=== PATIENT | male | born 1935 | race Caucasian/White ===

== ENCOUNTER 2019-12-19 14:37 | Inpatient (IN) ==
--- OUTSIDE RECORDS SUMMARY | 2019-12-19 14:39 | External Medical Summary | Continuity of Care Document ---
:1935 Author Name Hardy Kumar Address Unavailable Unavailable , Care Team Providers Name Role Phone NonMNPG MSerjio Unavailable [email or web address] Unavailable Unavailable Problems Prostate cancer (185) (C61) Nephrolithiasis (592.0) (N20.0) Allergies and Adverse Reactions No Known Drug Allergies (Allergy) Medications Aspirin 81 MG TABS; TAKE 1 TABLET DAILY. Start: 01-Sep-2012 Refills: 0 Simvastatin 40 MG Oral Tablet; TAKE 1 TABLET DAILY DIRECT ED. Start: 01-Sep-2012 Refills: 0 glipiZIDE 5 MG Oral Tablet; TAKE 1 TABLET DAILY. Start: 01-Sep-2012 Refills: 0 Doxazosin Mesylate 2 MG Oral Tablet; TAKE 1 TABLET DAILY DIRECTED. Start: 01-Sep-2012 Refills: 0 Enalapril Maleate 5 MG Oral Tablet; TAKE 1 TABLET DAILY D IRECTED. Start: 01-Sep-2012 Refills: 0 Janumet 50-1000 MG Oral Tablet; TAKE 1 TABLET DAILY DIREC NADYA. Start: 01-Sep-2012 Refills: 0 Procedures Procedures not documented Immunizations Immunizations not documented Family History Unknown Family Member Family history of Prostate Cancer (V16.42) Status: Active Comments: Family History Social History - Smoking Status Never smoked tobacco Plan of Treatment Planned Observations Planned Goals not documented Results No Known Results Results not documented
--- OUTSIDE RECORDS SUMMARY | 2019-12-19 14:40 | External Medical Summary | Continuity of Care Document ---
:1935 Author Name Hardy Kumar Address Unavailable Unavailable , Care Team Providers Name Role Phone NonMNPG MSerjio Unavailable [email or web address] [place] Unavailable Unavailable Problems Nephrolithiasis (592.0) (N20.0) Prostate cancer (185) (C61) Allergies and Adverse Reactions No Known Drug [...]
[2019-12-19] MEDS ORDERED: SODIUM CHLORIDE 0.9% 250 ML IV ONE (15:04)
[2019-12-19] MEDS ORDERED: ACETAMINOPHEN 325 MG TAB PO STA (15:07)
--- NOTE | 2019-12-19 15:10 | Emergency Department Note ---
History of Present Illness General Chief complaint: Illness Stated complaint: FATIGUE Time Seen by Provider: 12/19/19 14:53 Source: patient History of Present Illness Provider complaint: Generalized fatigue Onset (ago): week(s) Location: upper extremity and lower extremity Severity: moderate Pain Consistency: + constant Quality: + other (Generalized fatigue) Relieved By: + none Associated symptoms: + cough, + shortness of breath (Mild) and + other (Loss of taste and smell and diarrhea); no chest pain, no fever/chills and no nausea/vomiting This is an 84-year-old male who was diagnosed with COVID-19, along with his , yesterday. The patient is presenting with generalized fatigue and body aches. He has had loss of taste and smell and some diarrhea. He denies any fever, chest pain, vomiting or difficulty breathing. He does state that he sometimes has some mild shortness of breath. He has no leg swelling or pain. He came here with his to see if there was something he could get to make himself feel better. He states he has not been eating very much as he has no appetite. He has been drinking fluids. Home Medications Home Medications Medication Instructions Recorded Confirmed Type glipizide 5 mg PO BID 12/19/19 12/19/19 History ibuprofen 800 mg PO TID PRN 12/19/19 12/19/19 History lisinopril 10 mg PO DAILY 12/19/19 12/19/19 History metformin 1,000 mg PO BID 12/19/19 12/19/19 History simvastatin 40 mg PO DAILY 12/19/19 12/19/19 History Allergies Allergy/AdvReac Type Severity Reaction Status Date / Time No Known Allergies Allergy Unverified 12/19/19 15:31 Past Med/Surg History Medical History Diabetes High cholesterol Social History Smoking Status: Current some day smoker Feels Safe at Home: Yes Review of Systems See HPI for pertinent positives & negatives. and A total of 10 systems reviewed and were otherwise negative Physical Exam Vital Signs Vital Signs - 24 hr 12/19/19 14:37 12/19/19 16:00 12/19/19 19:09 Temperature 36.8 C Temperature Source Axillary Pulse Rate 102 H Pulse Rate [Apical] 91 H 81 Pulse Rhythm [Apical] Regular Regular Pulse Strength [Apical] Normal Normal Respiratory Rate 28 H 26 H 28 H Respiratory Effort / Characteristics Non-Labored Spontaneous Non-Labored Spontaneous Non-Labored Spontaneous Respiratory Depth Normal Normal Normal Respiratory Pattern Regular Regular Blood Pressure 157/82 H Blood Pressure [Right Arm] 158/83 H 164/89 H Blood Pressure Mean 107 Blood Pressure Mean [Right Arm] 108 114 Blood Pressure Position Sitting Blood Pressure Position [Right Arm] Sitting Sitting Pulse Oximetry 94 95 94 Oxygen Delivery Method Room Air Room Air Room Air Sepsis Recent Fever Within 48 Hours No Sepsis New/Unexplained Change in Mental Status No Sepsis Action Taken by Nursing Physician Notified 12/19/19 20:10 Temperature Temperature Source Pulse Rate Pulse Rate [Apical] 109 H Pulse Rhythm [Apical] Pulse Strength [Apical] Respiratory Rate 20 Respiratory Effort / Characteristics Respiratory Depth Respiratory Pattern Blood Pressure Blood Pressure [Right Arm] 182/94 H Blood Pressure Mean Blood Pressure Mean [Right Arm] 123 Blood Pressure Position Blood Pressure Position [Right Arm] Pulse Oximetry 93 Oxygen Delivery Method Room Air Sepsis Recent Fever Within 48 Hours Sepsis New/Unexplained Change in Mental Status Sepsis Action Taken by Nursing Constitutional: Vital signs reviewed. Eyes: Pupils are equal round reactive to light. Conjunctiva are noninjected. ENT: Pharynx is clear without erythema or exudate. Mucous membranes are slightly dry. Neck supple without meningeal signs. Respiratory: Clear to auscultation bilaterally. Breath sounds are equal bilaterally. Cardiovascular: Regular rate and rhythm. No rubs or gallops. GI: Soft, nondistended and nontender. Bowel sounds are present. Musculoskeletal: No peripheral edema. No lower extremity tenderness. Integumentary: No cyanosis. or jaundice. Neurological: The patient is awake and alert. No focal deficits. Psychiatric: Normal affect. Not anxious appearing. Course Administered Medications Discontinued Medications Acetaminophen (Acetaminophen 325 Mg Tab) 650 mg PO NOW STA Stop: 12/19/19 15:08 Last Admin: 12/19/19 15:26 Dose: 650 mg Documented by: [id number] Sodium Chloride (Nss) 250 mls @ 999 mls/hr IV .Q16M ONE Stop: 12/19/19 15:19 Last Infusion: 12/19/19 15:40 Dose: 0 mls/hr Documented by: [id number] Admin: 12/19/19 15:26 Dose: 999 mls/hr Documented by: [id number] Medical Decision Making Differential Diagnosis COVID-19, pneumonia, dehydration, metabolic derangement, anemia Medical Records Attestation: I reviewed the patient's medical records. I did perform a limited focused review of portions of the patient's old chart on the electronic medical record. The patient has had no recent pertinent visits to this hospital. Home Medications Current Medication List: was personally reviewed by me Laboratory Data Attestation: I reviewed the patient's lab results. Result diagrams: 12/19/19 15:04 12/19/19 15:04 Lab Results 12/19/19 12/19/19 12/19/19 Range/Units 15:04 15:04 15:04 WBC 7.17 (4.8-10.8) K/uL RBC 4.76 (4.7-6.1) M/uL Hgb 14.4 (14.0-18.0) g/dL Hct 42.0 (42-52) % MCV 88.2 (80-100) fL MCH 30.3 (25-34) pg MCHC 34.3 (32-36) g/dL RDW Std Deviation 41.8 (36.4-46.3) fL RDW Coeff of Skyler 12.9 (11.5-14.5) % Plt Count 196 (130-400) K/uL MPV 9.8 (7.4-10.4) fL Immature Gran % (Auto) 0.4 % Neut % (Auto) 84.4 % Lymph % (Auto) 9.1 % Dubois % (Auto) 6.0 % Eos % (Auto) 0.0 % Baso % (Auto) 0.1 % Neut # (Auto) 6.05 (1.4-6.5) K/uL Lymph # (Auto) 0.65 L (1.2-3.4) K/uL Dubois # (Auto) 0.43 (0.11-0.59) K/uL Eos # (Auto) 0.00 (0-0.5) K/uL Baso # (Auto) 0.01 (0-0.2) K/uL Immature Gran # (Auto) 0.03 H (0.00-0.02) K/uL PT 10.7 (9.0-12.0) Seconds INR 1.0 (0.9-1.1) APTT 31.2 H (21.0-31.0) Seconds PTT Ratio 1.1 Sodium 127 L (136-145) mmol/L Potassium 4.3 (3.5-5.1) mmol/L Chloride 92 L (98-107) mmol/L Carbon Dioxide 24 (21-32) mmol/L Anion Gap 11.0 (3-11) BUN 19 H (7-18) mg/dl Creatinine 1.50 H (0.6-1.4) mg/dl Est Cr Clr Drug Dosing Not Reportable Est GFR ( Amer) 49.2 Est GFR (Non-Af Amer) 42.4 BUN/Creatinine Ratio 12.9 (10-20) Glucose 250 H (70-99) mg/dl Calcium 8.9 (8.5-10.1) mg/dl Total Bilirubin 0.9 (0.2-1) mg/dl AST 27 (15-37) U/L ALT 26 (12-78) U/L Alkaline Phosphatase 109 (45-117) U/L Troponin I < 0.015 (0-0.045) ng/ml Total Protein 7.5 (6.4-8.2) gm/dl Albumin 3.4 (3.4-5.0) gm/dl Globulin 4.1 H (2.5-4.0) gm/dl Albumin/Globulin Ratio 0.8 L (0.9-2) Imaging Data Radiologist's Impression: XR chest 1V portable CLINICAL HISTORY: Shortness of breath. Possible pneumonia COMPARISON STUDY: No previous studies for comparison. FINDINGS: The heart is normal in size. There is faint visualization of aortic valve stent graft. There are bilateral interstitial pulmonary opacities most pronounced within the right midlung zone. Given the clinical history, the findings likely represent a pneumonitis.[No pleural effusions are visualized. IMPRESSION: 1. Subtle bilateral interstitial opacities, most pronounced within the right midlung zone laterally. Given the clinical history, a pneumonitis is suspected. Clinical and radiographic follow-up is recommended. ACT 112: Negative or not required by law. Electronically signed by: Roman Khan M.D. 12/19/2019 5:21 PM ECG Data Attestation: I personally reviewed and interpreted this ECG as follows: Indication: + SOB/dyspnea Rate (beats per minute): 98 Rhythm: + normal sinus ECG Parker: + Left axis deviation ECG Findings: + Q waves; no PVCs Comparison ECG Date: no prior available MDM Narrative I did evaluate the patient as noted above. The patient is presenting with a week of symptoms and a positive COVID-19 test yesterday. He has generalized fatigue, loss of appetite and some mild shortness of breath. He has also had some loss of taste and smell as well as diarrhea. IV access was established. I did treat him with normal saline IV. He was also given Tylenol p.o. I did place an order for continuous cardiac monitoring. The monitor showed normal sinus rhythm at a rate of 97 bpm. I did order and personally review the patient's 12-lead EKG as described above. He has Q waves. There is no old EKG to compare this with. He denies any chest discomfort or pain. I did order and personally reviewed the images of the patient's chest x-ray as described above. He has bilateral interstitial infiltrates most pronounced on the right side. This is consistent with his diagnosis of COVID-19. I did order and review the patient's blood work as noted in the electronic medical record. His CBC is unremarkable. He has no leukocytosis or anemia. His creatinine is elevated at 1.5. Sodium is 127. Troponin is negative. Glucose is 250. I did discuss the test results with the patient. He states he feels slightly better after the fluids but feels he needs to be hospitalized. He will be hospitalized for further care and evaluation and care. I did discuss the case with the hospitalist and classification case manager. Impression & Plan Pneumonia due to COVID-19 virus, Acute hyponatremia, Acute dehydration, Acute hyperglycemia Discharge Plan Visit Data Chief Complaint: Illness Stated Complaint: FATIGUE ED Provider: Jett Thakur Discharge Problem: Pneumonia due to COVID-19 virus, Acute hyponatremia, Acute dehydration, Acute hyperglycemia Patient Disposition: Being Evaluated by Hospitalist Discharge Instructions Interventions: ED Discharge Assessment Last Done: 12/19/19 19:19 Forms Stand Alone Forms: My [facility] Prescriptions Prescriptions: No Action ibuprofen 800 mg tablet 800 mg PO TID PRN (Reason: Pain) RF: 0 simvastatin 40 mg tablet 40 mg PO DAILY RF: 0 metformin 1,000 mg tablet 1,000 mg PO BID RF: 0 lisinopril 10 mg tablet 10 mg PO DAILY RF: 0 glipizide 5 mg tablet 5 mg PO BID RF: 0 Referrals Referrals: PCP,NO [Primary Care Provider] -
[2019-12-19 15:26] LABS: Basophils # (auto) 0.01 K/uL (0-0.2); Basophils % (auto) 0.1 %; Hemoglobin 14.4 g/dL (14.0-18.0); Immature Granulocytes # (auto) 0.03 K/uL (0.00-0.02); Immature Granulocytes % (auto) 0.4 %; Lymphocytes # (auto) 0.65 K/uL (1.2-3.4); Lymphocytes % (auto) 9.1 %; Mean Corpuscular Hemoglobin 30.3 pg (25-34); Mean Corpuscular Hgb Conc 34.3 g/dL (32-36); Mean Corpuscular Volume 88.2 fL (80-100); Mean Platelet Volume 9.8 fL (7.4-10.4); Monocytes # (auto) 0.43 K/uL (0.11-0.59); Neutrophils # (auto) 6.05 K/uL (1.4-6.5); Neutrophils % (auto) 84.4 %; Platelet Count 196 K/uL (130-400); RDW Coefficient of Variation 12.9 % (11.5-14.5); RDW Standard Deviation 41.8 fL (36.4-46.3); Red Blood Count 4.76 M/uL (4.7-6.1); White Blood Count 7.17 K/uL (4.8-10.8)
[2019-12-19 15:36] LABS: Partial Thromboplastin Ratio 1.1; Partial Thromboplastin Time 31.2 Seconds (21.0-31.0); Prothrombin Time 10.7 Seconds (9.0-12.0)
[2019-12-19 15:42] LABS: Alanine Aminotransferase 26 U/L (12-78); Albumin Level 3.4 gm/dl (3.4-5.0); Aspartate Aminotransferase 27 U/L (15-37); BUN Creatinine Ratio 12.9 (10-20); Blood Urea Nitrogen 19 mg/dl (7-18); Calcium 8.9 mg/dl (8.5-10.1); Carbon Dioxide 24 mmol/L (21-32); Chloride 92 mmol/L (98-107); Est GFR (African American) 49.2; Est GFR (Non-African American) 42.4; Glucose 250 mg/dl (70-99); Potassium 4.3 mmol/L (3.5-5.1); Sodium 127 mmol/L (136-145)
[2019-12-19 15:46] LABS: Albumin Globulin Ratio 0.8 (0.9-2); Alkaline Phosphatase 109 U/L (45-117); Bilirubin,Total 0.9 mg/dl (0.2-1); Globulin 4.1 gm/dl (2.5-4.0); Total Protein 7.5 gm/dl (6.4-8.2); Troponin I < 0.015 ng/ml (0-0.045)
--- NOTE | 2019-12-19 17:23 | XRay Report ---
XR chest 1V portable CLINICAL HISTORY: Shortness of breath. Possible pneumonia COMPARISON STUDY: No previous studies for comparison. FINDINGS: The heart is normal in size. There is faint visualization of aortic valve stent graft. Ther e are bilateral interstitial pulmonary opacities most pronounced within the right midlung zone. Given the clinical history, the findings likely represent a pneumonitis.[No pleural effusions are visualiz ed. IMPRESSION: 1. Subtle bilateral interstitial opacities, most pronounced within the right midlung zone laterally. Given the clinical history, a pneumonitis is suspected. Clinical and radiographic follow-up is recomm ended. ACT 112: Negative or not required by law. Electronically signed by: Roman Khan M.D. 12/19/2019 5:21 PM
--- NOTE | 2019-12-19 20:52 | History & Physical Report ---
Date of Service December 19, 2019 Assessment & Plan (1) Pneumonia due to COVID-19 virus: First symptoms on Saturday (12/12) and tested positive on Saturday. Presently breathing comfortably on room air. - Recover trial clearly indicates dexamethasone is contraindicated unless patient is hypoxemic. - [place] trial indicates no benefit from convalescent plasma on moderate Covid in terms of progression to severe Covid or mortality. - [facility] study (12/17/2019) on remdesivir shows no benefits on mortality or morbidity on patient NOT needing supplemental O2. As such, no Covid-specific treatment indicated for patient. - Supportive care (2) Acute hyponatremia: Na was 127 on admission. No known baseline. Appears slightly hypovolemic, so likely dehydration. - Given IV fluids - Monitor (3) Acute kidney injury: Cr is 1.5. Unknown baseline, but fits with pre-renal picture of mild dehydration. - IV fluids - Monitor Cr (4) Diabetes: No known A1c in the chart. - Hold home oral meds. - Sliding scale insulin (5) Hypertension: BP 180/90 presently. - Continue home lisinopril - Hydralazine PRN (6) High cholesterol: - Continue statin History of Present Illness Primary Care Provider: NO PCP 84yo M w/ hx of HTN and DM who presents with Covid-19. Per patient, he became sick on Saturday. He had some fevers, but honestly his chief complaint is loss of appetite. He also had some whole-body aches and pains and generalized weakness. Not much shortness of breath and no major cough. He was brought in with his by their son who was worried they were not doing well at home. Allergies Allergy/AdvReac Type Severity Reaction Status Date / Time No Known Allergies Allergy Unverified 12/19/19 15:31 Home Medications Home Medications Medication Instructions Recorded Confirmed Type glipizide 5 mg PO BID 12/19/19 12/19/19 History ibuprofen 800 mg PO TID PRN 12/19/19 12/19/19 History lisinopril 10 mg PO DAILY 12/19/19 12/19/19 History metformin 1,000 mg PO BID 12/19/19 12/19/19 History simvastatin 40 mg PO DAILY 12/19/19 12/19/19 History Past Med/Surg History Medical History (Updated 12/19/19 @ 21:05 by Hernán Gerber MD) Diabetes High cholesterol Hypertension Family History (Updated 12/19/19 @ 20:54 by Hernán Gerber MD) Mother Hypertension Social History Smoking Status: Current some day smoker Feels Safe at Home: Yes Review of Systems Review of Systems: All systems reviewed & are unremarkable except as noted in HPI & below Physical Exam Constitutional: WD/WN, vitals as above Eyes: EOM intact bilaterally; no conjunctival abnormality ENMT: external ear and nose normal, oropharynx normal Neck: trachea midline, no thyromegaly normal visual inspection Respiratory: normal respiratory effort, lungs clear to auscultation no respiratory distress Cardiovascular: RRR, no murmur, no edema Gastrointestinal (Abdomen): Inspection/Auscultation: abdomen normal to inspection; abdomen not distended Musculoskeletal: no cyanosis or clubbing, extremities motor strength 5/5 Skin: no rashes, warm and dry Neurologic: moves all extremities and awake Psychiatric: Orientation: alert, oriented to person and cooperative Results & Data Results & Data ([facility]) Vital Signs (Past 12 Hours) Vital Signs Temp Pulse Pulse Resp BP BP Pulse Ox 12/19/19 20:10 109 H 20 182/94 H 93 12/19/19 19:09 81 28 H 164/89 H 94 12/19/19 16:00 91 H 26 H 158/83 H 95 12/19/19 14:37 36.8 C 102 H 28 H 157/82 H 94 Code Status & VTE Plan VTE Prophylaxis Plan VTE Prophylaxis will be ordered: Yes PG Care Time/CCT Total # of Minutes Spent Total Time Spent with Patient: Total time spent is greater than 50% in coordination of care (as documented) at patient's floor/unit and/or counseling patient: Coding Level of Care Code 33746 OBS Care - Level 3 Diagnoses Pneumonia due to COVID-19 virus U07.1; J12.89 Acute hyponatremia E87.1 Acute kidney injury N17.9 Diabetes E11.9 Hypertension I10 High cholesterol E78.00
[2019-12-19] MEDS ORDERED: GLUCAGON FOR INJ 1 MG VIAL SQ PRN (21:22)
[2019-12-19] MEDS ORDERED: CARBOHYDRATES FOR HYPOGLYCEMIA PO PRN (21:22)
[2019-12-19] MEDS ORDERED: ACETAMINOPHEN 325 MG TAB PO PRN (21:22)
[2019-12-19] MEDS ORDERED: GLUCOSE 10 TABS/TUBE PO PRN (21:22)
[2019-12-19] MEDS ORDERED: DEXTROSE 50% 50 ML SYRINGE IV PRN (21:22)
[2019-12-19] MEDS ORDERED: GLUCOSE 40% GEL 15 GM TUBE PO PRN (21:22)
[2019-12-19] MEDS ORDERED: ONDANSETRON INJ 2 MG/ML 2 ML VIAL IV PRN (21:22)
[2019-12-19] MEDS: LACTATED RINGER'S 1,000 ML IV SCH (22:03)
[2019-12-19] MEDS: HEPARIN SOD 5,000 UNIT/0.5 ML VIAL SQ SCH (22:04)
[2019-12-19] MEDS: INSULIN ASPART 100 UNITS/ML 3 ML PEN SC SCH (22:34)
[2019-12-20 05:08] LABS: Hematocrit (blood only) 38.3 % (42-52); Hemoglobin 13.2 g/dL (14.0-18.0); Mean Corpuscular Hemoglobin 30.2 pg (25-34); Mean Corpuscular Hgb Conc 34.5 g/dL (32-36); Mean Corpuscular Volume 87.6 fL (80-100); Mean Platelet Volume 9.9 fL (7.4-10.4); Platelet Count 184 K/uL (130-400); RDW Coefficient of Variation 12.9 % (11.5-14.5); RDW Standard Deviation 41.6 fL (36.4-46.3); Red Blood Count 4.37 M/uL (4.7-6.1)
[2019-12-20 05:40] LABS: Calcium 8.3 mg/dl (8.5-10.1); Creatinine Clr Calc Pharmacy 58.1 ml/min; Est GFR (African American) 76.6; Est GFR (Non-African American) 66.1; Magnesium 1.6 mg/dl (1.8-2.4); Potassium 4.5 mmol/L (3.5-5.1)
[2019-12-20 05:42] LABS: Albumin Globulin Ratio 0.8 (0.9-2); Bilirubin,Total 0.7 mg/dl (0.2-1); Globulin 3.6 gm/dl (2.5-4.0); Phosphorus 2.5 mg/dl (2.5-4.9); Total Protein 6.6 gm/dl (6.4-8.2)
[2019-12-20] MEDS: LACTATED RINGER'S 1,000 ML IV SCH (07:52)
--- NOTE | 2019-12-20 08:17 | Hospitalist Progress Note ---
Date of Service December 20, 2019 Assessment & Plan (1) Pneumonia due to COVID-19 virus: First symptoms on Saturday (12/12) and tested positive on Friday 12/15. -Patient has somewhat progressed during the early intervention specialist hours of 12/19 to include tachypnea tachycardia and hypoxia I did consent him for convalescent plasma but also spoke to his about as she was also my patient. She subsequently has been discharged. He is started on remdesivir per protocol and intravenous dexamethasone with zinc (2) Acute hyponatremia: Na was 127 on admission. No known baseline. Patient did receive IV fluids these were subsequently stopped to try to prevent any pulmonary edema and worsen his respiratory status. 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 He is on a volume restriction now Hypomagnesemia has been replete (3) Acute kidney injury: Cr is 1.5 on admission now resolved (4) Diabetes: No known A1c in the chart. - Hold home oral meds. - Sliding scale insulin ischemic management will be employed due to the hyperglycemia induced by his intravenous steroids (5) Hypertension: BP 180/90 presently. - Continue home lisinopril - Hydralazine PRN (6) High cholesterol: - Continue statin (7) DVT prophylaxis: Heparin 5000 every 12 may consider higher doses if his inflammatory process progresses Admission and Anticipated Discharge Date Admission Date: December 19, 2019 Subjective Patient has had minimal forgetfulness. He is markedly tachypneic using accessory muscles of respiration. He is tachycardic. He is 89% on room air by my check. Currently he does qualify for treatment now for his Covid pneumonia. He was consented for convalescent plasma started on dexamethasone 6 mg IV daily and started on remdesivir. He seemingly is unaware of his significant respiratory distress and hypoxia when you ask him if he feels short of breath he denies this despite having persistent tachypnea. Review of Systems Review of Systems: Mild distress and fatigue forgetfulness no headache, blurry or double vision no speech or swallowing issues no chest pain, pressure or palpitations no complaints of shortness of breath, does have a nonproductive cough no abdominal pain, nausea or vomiting, diarrhea or constipation no dysuria, hematuria or frequency no focal joint pain or swelling no back pain, CVA tenderness or radicular pain no bruising, bleeding or rashes no focal signs of weakness or numbness or altered sensation no complaints of anxiety or depression. Physical Exam Physical Exam: The patient appeared well nourished and normally developed. He appears better than his stated age Vital signs as documented. Head exam is normocephalic atraumatic no scleral icterus Neck is without JVD, thyromegaly, or carotid bruits. Lungs are coarse bilaterally Cardiac exam, Rhythm is regular.. Tachycardic, no murmurs, rubs or gallops. Abdominal exam reveals normal bowel sounds, soft non tender, no masses Extremities are nonedematous and both pedal pulses are present Neurologic exam is alert and oriented, forgetful at times no focal loss of strength or sensation Skin is without bruises or rashes Psychologically is without concerns and is of some mild dementia Results & Data Results & Data ([facility]) Vital Signs (Past 12 Hours) Vital Signs Temp Pulse Pulse Resp BP BP Pulse Ox 12/20/19 07:58 116 H 12/20/19 04:51 98.2 F 98 H 33 H 160/87 H 97 12/20/19 00:17 98.6 F 105 H 35 H 154/85 H 93 12/20/19 00:00 110 H 12/19/19 21:29 98.2 F 115 H 45 H 175/94 H 93 12/19/19 21:08 98.2 F 115 H 46 H 175/94 H 93 PG Care Time/CCT Total # of Minutes Spent Total Time Spent with Patient: Total time spent is greater than 50% in coordination of care (as documented) at patient's floor/unit and/or counseling patient: Coding Level of Care Code 17928 Subseq Hosp Care Lvl 3 Diagnoses Pneumonia due to COVID-19 virus U07.1; J12.89 Acute hyponatremia E87.1 Acute kidney injury N17.9 Diabetes E11.9 Hypertension I10 High cholesterol E78.00 DVT prophylaxis Z29.9
[2019-12-20] MEDS ORDERED: MAGNESIUM SULFATE / D5W 1 GM/100 ML BAG IV ONE (08:30)
[2019-12-20] MEDS: INSULIN ASPART 100 UNITS/ML 3 ML PEN SC SCH ×4 (08:58→21:26)
[2019-12-20] MEDS: HEPARIN SOD 5,000 UNIT/0.5 ML VIAL SQ SCH ×2 (08:59→21:15)
[2019-12-20] MEDS: SIMVASTATIN 40 MG TAB PO SCH (08:59)
[2019-12-20] MEDS: lisinopril 10 MG TAB PO SCH (08:59)
[2019-12-20] MEDS ORDERED: REMDESIVIR 200 MG in SODIUM CHLORIDE 0.9% 210 ML IV ONE (12:00)
[2019-12-20] MEDS: dexAMETHasone 6 MG in SYRINGE 0 ML IV SCH (12:12)
--- NOTE | 2019-12-20 12:29 | Electrocardiogram Report ---
Test Reason : Blood Pressure : / mmHG Vent. Rate : 098 BPM Atrial Rate : 098 BPM P-R Int : 154 ms QRS Dur : 082 ms QT Int : 346 ms P-R-T Axes : 039 -36 073 degrees QTc Int : 441 ms Normal sinus rhythm Possible Left atrial enlargement Left axis deviation Low voltage QRS Inferior infarct , age undetermined Anteroseptal infarct , age undetermined Abnormal ECG No previous ECGs available Confirmed by Dayne Carrasco ([id number]) on 12/20/2019 12:28:50 PM Referred By: REFERRED SELF Confirmed By:Dayne Carrasco
[2019-12-20] MEDS: SODIUM CHLORIDE 0.9% 10ML FLUSH IV SCH (14:56)
[2019-12-20] MEDS ORDERED: INSULIN HUMAN REGULAR PER UNIT 6 UNITS in SYRINGE 5.94 ML IV ONE (17:45)
[2019-12-20] MEDS ORDERED: PHARMACY GLYCEMIC MGMT CONSULT PRN (19:52)
[2019-12-20] MEDS ORDERED: INSULIN HUMAN REGULAR PER UNIT 8 UNITS in SYRINGE 7.92 ML IV ONE (22:15)
[2019-12-20] MEDS ORDERED: INSULIN GLARGINE SOLOSTAR 100 UNITS/ML 3 ML PEN SC ONE (22:30)
[2019-12-21] MEDS: INSULIN ASPART 100 UNITS/ML 3 ML PEN SC SCH ×7 (00:48→21:50)
[2019-12-21 04:45] LABS: Hematocrit (blood only) 37.7 % (42-52); Hemoglobin 12.8 g/dL (14.0-18.0); Mean Corpuscular Hemoglobin 30.3 pg (25-34); Mean Corpuscular Volume 89.1 fL (80-100); Mean Platelet Volume 9.8 fL (7.4-10.4); Platelet Count 250 K/uL (130-400); RDW Coefficient of Variation 13.3 % (11.5-14.5); RDW Standard Deviation 43.7 fL (36.4-46.3); Red Blood Count 4.23 M/uL (4.7-6.1); White Blood Count 9.34 K/uL (4.8-10.8)
[2019-12-21 04:58] LABS: D Dimer 770 ug/L FEU (0-500)
[2019-12-21 05:03] LABS: Alanine Aminotransferase 28 U/L (12-78); Albumin Level 2.6 gm/dl (3.4-5.0); Aspartate Aminotransferase 27 U/L (15-37); BUN Creatinine Ratio 28.8 (10-20); Blood Urea Nitrogen 37 mg/dl (7-18); Calcium 8.5 mg/dl (8.5-10.1); Carbon Dioxide 28 mmol/L (21-32); Chloride 96 mmol/L (98-107); Creatinine Clr Calc Pharmacy 47.2 ml/min; Est GFR (African American) 59.6; Est GFR (Non-African American) 51.4; Glucose 238 mg/dl (70-99); Magnesium 2.2 mg/dl (1.8-2.4); Potassium 4.6 mmol/L (3.5-5.1); Sodium 129 mmol/L (136-145)
[2019-12-21 05:08] LABS: Albumin Globulin Ratio 0.7 (0.9-2); Alkaline Phosphatase 90 U/L (45-117); Bilirubin,Total 0.6 mg/dl (0.2-1); Globulin 3.9 gm/dl (2.5-4.0); Total Protein 6.5 gm/dl (6.4-8.2); Troponin I < 0.015 ng/ml (0-0.045)
[2019-12-21 06:26] LABS: Estimated Average Glucose 183 mg/dl
[2019-12-21] MEDS ORDERED: INSULIN GLARGINE SOLOSTAR 100 UNITS/ML 3 ML PEN SC SCH (08:00)
[2019-12-21] MEDS: lisinopril 10 MG TAB PO SCH (09:29)
[2019-12-21] MEDS: ZINC SULFATE 220 MG CAPSULE PO SCH (09:29)
[2019-12-21] MEDS: HEPARIN SOD 5,000 UNIT/0.5 ML VIAL SQ SCH ×2 (09:29→21:51)
[2019-12-21] MEDS: dexAMETHasone 6 MG in SYRINGE 0 ML IV SCH (09:29)
[2019-12-21] MEDS: SIMVASTATIN 40 MG TAB PO SCH (09:29)
[2019-12-21] MEDS: INSULIN GLARGINE SOLOSTAR 100 UNITS/ML 3 ML PEN SC SCH ×2 (09:30→21:49)
--- NOTE | 2019-12-21 11:43 | Pharmacy Report ---
Pharmacy Glycemic Short Note 2 - Date of Service December 21, 2019 - Glycemic Short BSG Results (Last 24 hours): 12/20/19 12/20/19 12/21/19 16:41 21:23 00:45 Glucose POC Glucose 303 H* 287 H 274 H 12/21/19 12/21/19 12/21/19 04:22 04:37 07:49 Glucose 238 H POC Glucose 246 H 219 H OUTPATIENT ANTIDIABETIC REGIMEN: * glipizide, metformin ASSESSMENT: * 84 year old, positive COVID pneumonia. Receiving Remdesivir and steroids. Type 2 diabetic managed only on oral agents at home. BSGs elevated in 250s, likely related to ongoing steroids * Plan to utilize scale for basal insulin based upon stress of 2/3 dosing. Plan to tighten CF this AM. CR had been tightened last evening PLAN FOR INPATIENT GLYCEMIC CONTROL: * Hold outpatient oral diabetes medications * Basal insulin * Lantus 8-22 units SQ BID based upon BSG scale * Bolus insulin * NovoLog per scale ACHS or Q6hrs while NPO * Goal Range: Low 120 mg/dL - High 150 mg/dL * Correction Factor: 15 mg/dL/unit * Nutritional / Prandial insulin per carb ratio of 1 unit per 6 grams CHO consumed PLAN FOR DISCHARGE: * tbd
[2019-12-21] MEDS ORDERED: INSULIN HUMAN REGULAR PER UNIT 8 UNITS in SYRINGE 7.92 ML IV ONE (12:15)
[2019-12-21] MEDS: REMDESIVIR 100 MG in SODIUM CHLORIDE 0.9% 230 ML IV SCH (12:47)
--- NOTE | 2019-12-21 13:59 | Hospitalist Progress Note ---
Date of Service December 21, 2019 Assessment & Plan (1) Pneumonia due to COVID-19 virus: First symptoms on Saturday (12/12) and tested positive on Friday 12/15. 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 She subseq uently has been discharged. He is started on remdesivir per protocol and intravenous dexamethasone with zinc (2) Acute hyponatremia: Na was 127 on admission. No known baseline. Patient did receive IV fluids these were subsequently stopped to try to prevent any pulmonary edema and worsen his respiratory status. 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 He is on a volume restriction now. Sodium level improving Hypomagnesemia has been repleted (3) Acute kidney injury: Cr is 1.5 on admission. Now resolved (4) Diabetes: - A1c 8.0. - Hold home oral meds. - Sliding scale insulin ischemic management will be employed due to the hyperglycemia induced by his intravenous steroids (5) Hypertension: - Continue home lisinopril - Hydralazine PRN (6) High cholesterol: - Continue statin (7) DVT prophylaxis: Heparin 5000 every 12 may consider higher doses if his inflammatory process progresses Admission and Anticipated Discharge Date Admission Date: December 19, 2019 Subjective Alert and pleasant. Sodium has increased to 129. Hypomagnesemia corrected. Glucose 238. Respiratory status appears stable. Review of Systems Review of Systems: Constitutional-no fever or chills ENT-no blurred vision, no double vision, no epistaxis, no sore throat Respiratory-nonproductive cough. No wheezing. Shortness of breath with exertion Cardiac-no palpitations, no chest pain, no syncope GI-no nausea, vomiting, diarrhea, melena, hematochezia -no urinary retention, no urinary incontinence, no dysuria, no hematuria Musculoskeletal-no joint pain, no muscle tenderness Skin-no bruising, no rashes, no pruritus Neuro-no isolated weakness, no paresthesia, no weakness Psych-no depression, no anxiety Physical Exam Physical Exam: General-alert and oriented x3, no fevers, no chills HEENT-head atraumatic and normocephalic, TMs intact bilaterally, pupils equal and reactive to light, extraocular muscles intact Neck-no lymphadenopathy or thyromegaly, trachea midline Chest-faint bilateral inspiratory rhonchi. No wheezing. No rales. No dullness to percussion. Cardiac-regular rate and rhythm, normal S1 and S2, no murmurs Abdomen-normal bowel sounds, nontender, no hepatosplenomegaly Extremities-no cyanosis, clubbing, or edema Neuro-cranial nerves II through XII intact, motor and sensory function within normal limits, strength symmetrical 5/5, no focal deficits Psych-normal affect, normal mood Results & Data Results & Data ([facility]) Vital Signs (Past 12 Hours) Vital Signs Temp Pulse Resp Pulse Ox 12/21/19 08:00 75 12/21/19 07:00 75 24 91 12/21/19 06:00 82 33 H 92 12/21/19 05:00 76 22 93 12/21/19 04:00 36.4 C L 76 24 91 12/21/19 03:00 78 26 H 92 12/21/19 02:00 80 25 H 92 Laboratory Results 12/21/19 04:22 12/21/19 04:22 PG Care Time/CCT Total # of Minutes Spent Total Time Spent with Patient: Total time spent is greater than 50% in coordination of care (as documented) at patient's floor/unit and/or counseling patient: Coding Level of Care Code 77205 Subseq Hosp Care Lvl 3 Diagnoses Pneumonia due to COVID-19 virus U07.1; J12.89 Acute hyponatremia E87.1 Acute kidney injury N17.9 Diabetes E11.9 Hypertension I10 High cholesterol E78.00 DVT prophylaxis Z29.9
--- NOTE | 2019-12-21 14:01 | Hospitalist Progress Note ---
Date of Service December 21, 2019 Assessment & Plan Admission and Anticipated Discharge Date Admission Date: December 19, 2019 Results & Data Results & Data ([facility]) Vital Signs (Past 12 Hours) Vital Signs Temp Pulse Resp Pulse Ox 12/21/19 08:00 75 12/21/19 07:00 75 24 91 12/21/19 06:00 82 33 H 92 12/21/19 05:00 76 22 93 12/21/19 04:00 36.4 C L 76 24 91 12/21/19 03:00 78 26 H 92 12/21/19 02:00 80 25 H 92 PG Care Time/CCT Total # of Minutes Spent Total Time Spent with Patient: Total time spent is greater than 50% in coordination of care (as documented) at patient's floor/unit and/or counseling patient: Coding Level of Care Code 47197 Subseq Hosp Care Lvl 3
[2019-12-21] MEDS: SODIUM CHLORIDE 0.9% 10ML FLUSH IV SCH (14:12)
[2019-12-21] MEDS: LACTATED RINGER'S 1,000 ML IV SCH (23:03)
[2019-12-22] MEDS: INSULIN ASPART 100 UNITS/ML 3 ML PEN SC SCH ×7 (00:21→23:52)
[2019-12-22 07:01] LABS: Hematocrit (blood only) 34.9 % (42-52); Hemoglobin 11.8 g/dL (14.0-18.0); Mean Corpuscular Hemoglobin 29.7 pg (25-34); Mean Corpuscular Hgb Conc 33.8 g/dL (32-36); Mean Corpuscular Volume 87.9 fL (80-100); Mean Platelet Volume 9.5 fL (7.4-10.4); Platelet Count 258 K/uL (130-400); RDW Coefficient of Variation 12.9 % (11.5-14.5); RDW Standard Deviation 41.8 fL (36.4-46.3); Red Blood Count 3.97 M/uL (4.7-6.1); White Blood Count 9.73 K/uL (4.8-10.8)
[2019-12-22 07:32] LABS: Albumin Globulin Ratio 0.8 (0.9-2); Albumin Level 2.6 gm/dl (3.4-5.0); BUN Creatinine Ratio 41.9 (10-20); Bilirubin,Total 0.4 mg/dl (0.2-1); Creatinine Clr Calc Pharmacy 74.5 ml/min; Est GFR (African American) 95.3; Est GFR (Non-African American) 82.2; Globulin 3.3 gm/dl (2.5-4.0); Magnesium 1.9 mg/dl (1.8-2.4); Potassium 4.4 mmol/L (3.5-5.1); Total Protein 5.9 gm/dl (6.4-8.2)
[2019-12-22] MEDS: ZINC SULFATE 220 MG CAPSULE PO SCH (07:36)
[2019-12-22] MEDS: dexAMETHasone 6 MG in SYRINGE 0 ML IV SCH (07:37)
[2019-12-22] MEDS: SIMVASTATIN 40 MG TAB PO SCH (07:37)
[2019-12-22] MEDS: lisinopril 10 MG TAB PO SCH (07:37)
[2019-12-22] MEDS: HEPARIN SOD 5,000 UNIT/0.5 ML VIAL SQ SCH ×2 (07:57→20:39)
[2019-12-22] MEDS: INSULIN GLARGINE SOLOSTAR 100 UNITS/ML 3 ML PEN SC SCH ×2 (07:57→20:51)
--- NOTE | 2019-12-22 11:03 | Pharmacy Report ---
Glycemic Control Progress Note - Date of Service December 22, 2019 - Scope Glycemic Pharmacist consulted for glycemic control to write orders per [facility] inpatient glycemic control protocol. - Objective Accuchecks BSG(last 24 hours):: 12/21/19 12/21/19 12/21/19 11:50 17:07 21:48 Glucose POC Glucose 343 H* 226 H 270 H 12/22/19 12/22/19 12/22/19 00:19 04:20 06:44 Glucose 190 H POC Glucose 228 H 209 H 12/22/19 07:35 Glucose POC Glucose 196 H HbA1c:: Hemoglobin A1c 8.0 % (4.5-5.6) H 12/20/19 04:38 - Recent Pertinent Medications The patient is currently receiving: * Basal insulin: Lantus 22 units every 12 hours * Correctional Insulin: Novolog Correction per scale ACHS Goal Range: Low 120 mg/dL - High 10 mg/dL Correction Factor: 15 mg/dL/unit * Prandial insulin: Per carb ratio of 1 unit per 5 grams CHO consumed - Outpatient Anti-Diabetic Meds GLIPIZIDE 5 MG BID METFORMIN 1 GM BID - Assessment & Plan ASSESSMENT: * See progress note from 12/21/2019 for more background info, in short: * Pt receiving SQ basal bolus insulin regimen for hyperglycemia secondary to baseline DM (outpatient regimen on hold),stress/infection (COVID infection on remdesivir), and steroids (dexamethasone 6 mg IV daily) * Patient is currently receiving an average of 98 units of insulin per day * 44 units of basal insulin * 54 units of prandial/correctional insulin * BSGs ranging 219 - 343 mg/dl over the past 24hrs * Changes needed to insulin regimen: * AM Fasting BSG = 196 mg/dl. This is above goal range for patient based on inpatient targets and co-morbidities. Approaching fourth dose of Lantus so achieving steady state soon. Will hold off on increasing Lantus further at this time. Push towards a 40/60 split with basal/bolus * Post-prandial BSGs were elevated yesterday. Tighten both CF/CR and continue q4 checks. * Total daily dose = >100 units. Expect this to change significantly with steroid discontinuation. PLAN FOR INPATIENT GLYCEMIC CONTROL: * Continuing Lantus 22 units SQ BID (if BSG > 140; 15 units if BSG 140 mg/dl or less) * TIGHTENING correction factor to 12 mg/dl/unit * TIGHTENING carb ratio to 1 unit per 4 grams CHO consumed * Continuing goal range of Low 110 mg/dL - High 140 mg/dL * Please note that the plan above was derived based on current level of insulin resistance and hospital stress. These recommendations are appropriate for inpatient admission only. Plan of care upon discharge will need to be reassessed to avoid potential outpatient hypo/hyperglycemia. Thank you.
[2019-12-22] MEDS: REMDESIVIR 100 MG in SODIUM CHLORIDE 0.9% 230 ML IV SCH (12:26)
[2019-12-22] MEDS: SODIUM CHLORIDE 0.9% 10ML FLUSH IV SCH (12:27)
--- NOTE | 2019-12-22 13:46 | Discharge Summary ---
Date of Service December 22, 2019 Admission HPI Per Admitting Provider 84yo M w/ hx of HTN and DM who presents with Covid-19. Per patient, he became sick on Saturday. He had some fevers, but honestly his chief complaint is loss of appetite. He also had some whole-body aches and pains and generalized weakness. Not much shortness of breath and no major cough. He was brought in with his by their son who was worried they were not doing well at home. Discharge Data Allergies Allergy/AdvReac Type Severity Reaction Status Date / Time No Known Allergies Allergy Unverified 12/19/19 15:31 Consultations 12/19/19 17:27 ED Decision to Admit Stat 12/19/19 21:22 Consult Case Management - Discharge Planning Routine Hospital Course (1) Pneumonia due to COVID-19 virus: First symptoms on Saturday (12/12) and tested positive on Friday 12/15. 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 She subsequently has been discharged. He is started on remdesivir per protocol and intravenous dexamethasone with zinc (2) Acute hyponatremia: Na was 127 on admission. No known baseline. Patient did receive IV fluids these were subsequently stopped to try to prevent any pulmonary edema and worsen his respiratory status. 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 He is on a volume restriction now. Sodium level improving Hypomagnesemia has been repleted (3) Acute kidney injury: Cr is 1.5 on admission. Now resolved (4) Diabetes: - A1c 8.0. - Hold home oral meds. - Sliding scale insulin ischemic management will be employed due to the hyperglycemia induced by his intravenous steroids (5) Hypertension: - Continue home lisinopril - Hydralazine PRN (6) High cholesterol: - Continue statin (7) DVT prophylaxis: Heparin 5000 every 12 may consider higher doses if his inflammatory process progresses Discharge Plan Discharge Items Reason For Visit: COVID-19 Follow-up/Referrals: Maverick Gaytan D.O. [Primary Care Provider] - Medications and DC Order Prescriptions: No Action ibuprofen 800 mg tablet 800 mg PO TID PRN (Reason: Pain) RF: 0 simvastatin 40 mg tablet 40 mg PO DAILY RF: 0 metformin 1,000 mg tablet 1,000 mg PO BID RF: 0 lisinopril 10 mg tablet 10 mg PO DAILY RF: 0 glipizide 5 mg tablet 5 mg PO BID RF: 0 Krames/Other Patient Handouts: High Blood Sugar (Hyperglycemia), Hypoglycemia (Low Blood Sugar), Managing Type 2 Diabetes Admission Data Admit Date/Time: 12/19/19 18:20 Attending Provider: Jose Nleson Admit Provider: Hernán Gerber Primary Care Provider: Maverick Gaytan Other Providers: Hernán Gerber Coding Diagnoses Pneumonia due to COVID-19 virus U07.1; J12.89 Acute hyponatremia E87.1 Acute kidney injury N17.9 Diabetes E11.9 Hypertension I10 High cholesterol E78.00 DVT prophylaxis Z29.9
--- NOTE | 2019-12-22 13:48 | Hospitalist Progress Note ---
Date of Service December 22, 2019 Assessment & Plan (1) Pneumonia due to COVID-19 virus: First symptoms on Saturday (12/12) and tested positive on Friday 12/15. 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 She subse quently has been discharged. He is started on remdesivir per protocol and intravenous dexamethasone with zinc (2) Acute hyponatremia: Na was 127 on admission. No known baseline. Patient did receive IV fluids these were subsequently stopped to try to prevent any pulmonary edema and worsen his respiratory status. 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 He is on a volume restriction now. Sodium level improving Hypomagnesemia has been repleted (3) Acute kidney injury: Cr is 1.5 on admission. Now resolved (4) Diabetes: - A1c 8.0. - Hold home oral meds. - Sliding scale insulin ischemic management will be employed due to the hyperglycemia induced by his intravenous steroids (5) Hypertension: - Continue home lisinopril - Hydralazine PRN (6) High cholesterol: - Continue statin (7) DVT prophylaxis: Heparin SQ Disposition: Eventual discharge to home, hopefully later this week Admission and Anticipated Discharge Date Admission Date: December 19, 2019 Subjective Alert and oriented. Pleasant. No new findings or problems. 91% on 2 L oxygen. Review of Systems Review of Systems: Constitutional-no fever or chills ENT-no blurred vision, no double vision, no epistaxis, no sore throat Respiratory-nonproductive cough. No wheezing. Shortness of breath with exertion Cardiac-no palpitations, no chest pain, no syncope GI-no nausea, vomiting, diarrhea, melena, hematochezia -no urinary retention, no urinary incontinence, no dysuria, no hematuria Musculoskeletal-no joint pain, no muscle tenderness Skin-no bruising, no rashes, no pruritus Neuro-no isolated weakness, no paresthesia, no weakness Psych-no depression, no anxiety Physical Exam Physical Exam: General-alert and oriented x3, no fevers, no chills HEENT-head atraumatic and normocephalic, TMs intact bilaterally, pupils equal and reactive to light, extraocular muscles intact Neck-no lymphadenopathy or thyromegaly, trachea midline Chest-faint bilateral inspiratory rhonchi. No wheezing. No rales. No dullness to percussion. Cardiac-regular rate and rhythm, normal S1 and S2, no murmurs Abdomen-normal bowel sounds, nontender, no hepatosplenomegaly Extremities-no cyanosis, clubbing, or edema Neuro-cranial nerves II through XII intact, motor and sensory function within normal limits, strength symmetrical 5/5, no focal deficits Psych-normal affect, normal mood Results & Data Results & Data ([facility]) Vital Signs (Past 12 Hours) Vital Signs Temp Pulse Pulse Resp BP Pulse Ox 12/22/19 12:37 36.3 C L 90 20 159/76 H 91 12/22/19 09:52 66 12/22/19 07:43 36.4 C L 83 22 144/76 H 91 12/22/19 04:25 36.4 C L 87 18 135/75 90 Laboratory Results 12/22/19 06:44 12/22/19 06:44 PG Care Time/CCT Total # of Minutes Spent Total Time Spent with Patient: Total time spent is greater than 50% in coordination of care (as documented) at patient's floor/unit and/or counseling patient: Coding Level of Care Code 88859 Subseq Hosp Care Lvl 2 Diagnoses Pneumonia due to COVID-19 virus U07.1; J12.89 Acute hyponatremia E87.1 Acute kidney injury N17.9 Diabetes E11.9 Hypertension I10 High cholesterol E78.00 DVT prophylaxis Z29.9
[2019-12-22] MEDS: INSULIN HUMAN NPH SC SCH (17:24)
[2019-12-23] MEDS: INSULIN ASPART 100 UNITS/ML 3 ML PEN SC SCH ×5 (04:34→21:05)
[2019-12-23 06:54] LABS: Basophils # (auto) 0.01 K/uL (0-0.2); Basophils % (auto) 0.1 %; Hematocrit (blood only) 39.5 % (42-52); Hemoglobin 13.4 g/dL (14.0-18.0); Immature Granulocytes # (auto) 0.03 K/uL (0.00-0.02); Immature Granulocytes % (auto) 0.3 %; Lymphocytes # (auto) 0.75 K/uL (1.2-3.4); Lymphocytes % (auto) 7.7 %; Mean Corpuscular Hemoglobin 29.9 pg (25-34); Mean Corpuscular Hgb Conc 33.9 g/dL (32-36); Mean Corpuscular Volume 88.2 fL (80-100); Mean Platelet Volume 9.9 fL (7.4-10.4); Monocytes # (auto) 0.49 K/uL (0.11-0.59); Neutrophils # (auto) 8.44 K/uL (1.4-6.5); Neutrophils % (auto) 86.9 %; Platelet Count 321 K/uL (130-400); RDW Standard Deviation 42.1 fL (36.4-46.3); Red Blood Count 4.48 M/uL (4.7-6.1); White Blood Count 9.72 K/uL (4.8-10.8)
[2019-12-23 07:05] LABS: BUN Creatinine Ratio 29.9 (10-20); Calcium 9.3 mg/dl (8.5-10.1); Creatinine Clr Calc Pharmacy 68.2 ml/min; Est GFR (African American) 92.5; Est GFR (Non-African American) 79.8; Potassium 4.5 mmol/L (3.5-5.1)
[2019-12-23] MEDS: dexAMETHasone 6 MG in SYRINGE 0 ML IV SCH (08:18)
[2019-12-23] MEDS: INSULIN GLARGINE SOLOSTAR 100 UNITS/ML 3 ML PEN SC SCH ×2 (08:19→21:03)
[2019-12-23] MEDS: INSULIN HUMAN NPH SC SCH (08:20)
[2019-12-23] MEDS: HEPARIN SOD 5,000 UNIT/0.5 ML VIAL SQ SCH (08:21)
[2019-12-23] MEDS: SIMVASTATIN 40 MG TAB PO SCH (08:23)
[2019-12-23] MEDS: lisinopril 10 MG TAB PO SCH (08:23)
[2019-12-23] MEDS: ZINC SULFATE 220 MG CAPSULE PO SCH (08:23)
--- NOTE | 2019-12-23 11:43 | Pharmacy Report ---
Glycemic Control Progress Note - Date of Service December 23, 2019 - Scope Glycemic Pharmacist consulted for glycemic control to write orders per [facility] inpatient glycemic control protocol. - Objective Accuchecks BSG(last 24 hours):: 12/22/19 12/22/19 12/22/19 12:22 17:16 20:34 Glucose POC Glucose 187 H 175 H 155 H 12/22/19 12/23/19 12/23/19 23:37 04:33 06:13 Glucose 84 POC Glucose 141 H 73 12/23/19 12/23/19 06:17 07:38 Glucose POC Glucose 85 91 HbA1c:: Hemoglobin A1c 8.0 % (4.5-5.6) H 12/20/19 04:38 - Recent Pertinent Medications The patient is currently receiving: * Basal insulin: Lantus 22 units every 12 hours * Correctional Insulin: Novolog Correction per scale ACHS Goal Range: Low 110 mg/dL - High 140 mg/dL Correction Factor: 12 mg/dL/unit * Prandial insulin: Per carb ratio of 1 unit per 4 grams CHO consumed - Outpatient Anti-Diabetic Meds GLIPIZIDE 5 MG BID METFORMIN 1 GM BID - Assessment & Plan ASSESSMENT: * See progress note from 12/21/2019 for more background info, in short: * Pt receiving SQ basal bolus insulin regimen for hyperglycemia secondary to baseline DM (outpatient regimen on hold),stress/infection (patient has COVID 19 and is on dexamethasone 6 mg IV q24 hours plus remdesivir). * Patient is currently receiving an average of 113 units of insulin per day * 67 units of basal insulin * 46 units of prandial/correctional insulin * BSGs ranging 73 - 209 mg/dl over the past 24hrs * Changes needed to insulin regimen: * AM Fasting BSG = 85 mg/dl. This is in goal range for patient based on inpatient targets and co-morbidities. Basal regimen will be continued at a reduced rate. Since the steroid hyperglycemia was shifted to NPH, will start to reduce Lantus dose. Remove Lantus 22 unit dose. Will provide Lantus 8 units if BSG < 140 mg/dL and 15 units if BSG 140 mg/dL or greater. This is to cover the patient's home regimen of oral medications. For NPH, will continue with 30 units here at breakfast then reduce to 20 units at bedtime as effects from dexamethasone appear to not be as strong later in the evening. * Post-prandial BSGs are in range therefore no changes needed to CF/CR. * Total daily dose = ~100 units. Adjusted appropriately. PLAN FOR INPATIENT GLYCEMIC CONTROL: * DECREASING Lantus to 15 units SQ BID (8 units if blood sugar under 120 mg/dL) + NPH 30 units in the morning and 20 units in the evening * Continuing correction factor of 12 mg/dl/unit * Continuing carb ratio of 1 unit per 4 grams CHO consumed * Continuing goal range of Low 110 mg/dL - High 140 mg/dL * Please note that the plan above was derived based on current level of insulin resistance and hospital stress. These recommendations are appropriate for inpatient admission only. Plan of care upon discharge will need to be reassessed to avoid potential outpatient hypo/hyperglycemia. Thank you.
[2019-12-23] MEDS: REMDESIVIR 100 MG in SODIUM CHLORIDE 0.9% 230 ML IV SCH (12:48)
[2019-12-23] MEDS: SODIUM CHLORIDE 0.9% 10ML FLUSH IV SCH (12:49)
--- NOTE | 2019-12-23 16:20 | Hospitalist Progress Note ---
Date of Service December 23, 2019 Assessment & Plan (1) Respiratory failure with hypoxia: 2' to COVID pneumonia d dimer on 12-20 was elevated if no improvement, will check CTA to rule out PE (2) Pneumonia due to COVID-19 virus: First symptoms on Saturday (12/12) and tested positive on Friday 12/15 Day 10 of illness On 12/19 became tachypneic, tachycardic and hypoxic Patient received convalescent plasma Currently on remdesivir and intravenous dexamethasone (3) Acute hyponatremia: Na was 127 on admission -- improving 132 today Patient did receive IV fluids these were subsequently stopped to try to prevent any pulmonary edema and worsen his respiratory status. 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 He is on a volume restriction now. (4) Acute kidney injury: Cr is 1.5 on admission. Now resolved (5) Diabetes: - A1c 8.0. - Hold home oral meds. - Sliding scale insulin ischemic management will be employed due to the hyperglycemia induced by his intravenous steroids (6) Hypertension: - Continue home lisinopril - Hydralazine PRN (7) High cholesterol: - Continue statin (8) DVT prophylaxis: Heparin SQ Disposition: Eventual discharge to home, hopefully later this week Admission and Anticipated Discharge Date Admission Date: December 19, 2019 Subjective Patient reports shortness of breath, improved with oxygen. Endorses dry cough. Denies chest pain, denies lower extremity edema. Overall is feeling well. Eating and drinking. Having bowel movements. Eager to go home. Still requiring 4L oxygen. No issues overnight but did not sleep well. Requesting sleep aid for tonight. Review of Systems Constitutional: no fever, no chills, no fatigue, no weakness, no anorexia, no weight loss and no weight gain Ear, Nose, Mouth, Throat: no nasal congestion, no sore throat and no dysphagia Respiratory: + cough and + dyspnea Cardiovascular: no chest pain, no dyspnea on exertion, no orthopnea and no palpitations Gastrointestinal: no abdominal pain, no nausea, no vomiting, no hematemesis, no dysphagia, no constipation, no diarrhea/loose stools, no blood in stools and no melena Musculoskeletal: no back pain, no joint pain, no myalgia and no muscle weakness Integumentary: no rash, no lesions, no skin ulcer, no erythema, no dry skin and no pruritus Neurologic: no falls, no localized weakness, no generalized weakness, no numbness, no paresthesia, no tremor(s) and no headache(s) Psychiatric: no depression, no suicidal ideation, no homicidal ideation and no anxiety Endocrine: no cold intolerance and no heat intolerance Hematologic / Lymphatic: no easy bleeding and no easy bruising Physical Exam Constitutional: well developed and well nourished; no acute distress Eyes: PERRL, conjunctivae normal, anicteric sclerae ENMT: Mouth: oral mucous membranes not dry Respiratory: normal respiratory effort; no respiratory distress and no labored breathing Auscultation: lungs clear to auscultation bilaterally; no crackles, no rales, no rhonchi and no wheezes Cardiovascular: Rate/Rhythm: regular rate and regular rhythm Heart Sounds: no murmur and no cardiac rub Vessels: normal peripheral pulses and radial pulses present; no JVD Extremities: no edema Gastrointestinal (Abdomen): Inspection/Auscultation: abdomen normal to inspection and normal bowel sounds; abdomen not distended Percussion/Palpation: abdomen soft; abdomen nontender, no guarding, abdomen not rigid and no hepatosplenomegaly Musculoskeletal: Head/Neck/Chest: normocephalic and head atraumatic Spine: no cervical spinal tenderness, no cervical muscular tenderness, no thoracic spinal tenderness and no lumbar spinal tenderness Skin: no rashes, warm and dry Neurologic: CN's II-XI intact bilaterally and moves all extremities Motor/Sensory: no tremor and no sensory deficit Psychiatric: Orientation: alert, oriented to person, oriented to place and oriented to time Apperance: appropriately groomed; not disheveled Affect: euthymic affect; no anxious affect and no tearful affect Genitourinary: no De catheter Results & Data Results & Data ([facility]) Vital Signs (Past 12 Hours) Vital Signs Temp Pulse Pulse Resp BP BP Pulse Ox 12/23/19 15:38 71 12/23/19 14:27 36.3 C L 79 22 138/73 92 12/23/19 10:51 36.2 C L 90 20 143/78 H 90 12/23/19 08:23 36.4 C L 80 20 132/74 93 12/23/19 07:17 86 12/23/19 04:53 90 Laboratory Results Abnormal lab results 12/22/19 12/22/19 12/22/19 Range/Units 12:22 17:16 20:34 RBC (4.7-6.1) M/uL Hgb (14.0-18.0) g/dL Hct (42-52) % Neut # (Auto) (1.4-6.5) K/uL Lymph # (Auto) (1.2-3.4) K/uL Immature Gran # (Auto) (0.00-0.02) K/uL Sodium (136-145) mmol/L BUN (7-18) mg/dl BUN/Creatinine Ratio (10-20) POC Glucose 187 H 175 H 155 H (70-99) mg/dl 12/22/19 12/23/19 12/23/19 Range/Units 23:37 06:13 06:13 RBC 4.48 L (4.7-6.1) M/uL Hgb 13.4 L (14.0-18.0) g/dL Hct 39.5 L (42-52) % Neut # (Auto) 8.44 H (1.4-6.5) K/uL Lymph # (Auto) 0.75 L (1.2-3.4) K/uL Immature Gran # (Auto) 0.03 H (0.00-0.02) K/uL Sodium 132 L (136-145) mmol/L BUN 26 H (7-18) mg/dl BUN/Creatinine Ratio 29.9 H (10-20) POC Glucose 141 H (70-99) mg/dl Medications Administered Current Inpatient Medications Acetaminophen (Acetaminophen 325 Mg Tab) 650 mg PO Q4H PRN PRN Reason: Moderate Pain Stop: 01/18/20 21:21 Heparin Sodium (Porcine) (Heparin Sod 5,000 Unit/0.5 Ml Vial) 5,000 units SQ Q12 [facility] Stop: 01/18/20 21:21 Last Admin: 12/23/19 08:21 Dose: 5,000 units Documented by: Remdesivir 100 mg/ Sodium (Chloride) 250 mls @ 250 mls/hr IV Q24H [facility]; Protocol Stop: 12/24/19 12:59 Last Infusion: 12/23/19 13:48 Dose: Infused Documented by: Dexamethasone 6 mg/ Syringe 1.5 mls @ 1 mls/min IV Q24H [facility] Stop: 01/19/20 11:59 Last Admin: 12/23/19 08:18 Dose: 1 mls/min Documented by: Insulin Aspart (Insulin Aspart 100 Units/Ml 3 Ml Pen) 0 units SC ACHS [facility] Stop: 01/22/20 11:29 Last Admin: 12/23/19 12:26 Dose: Not Given Documented by: Insulin Glargine (Insulin Glargine Solostar 100 Units/Ml 3 Ml Pen) 0 units SC BID@0800,2000 [facility]; Protocol Stop: 01/20/20 07:59 Last Admin: 12/23/19 08:19 Dose: 8 units Documented by: Insulin Human NPH (Insulin Human Nph) 30 units SC DAILY@0800 [facility] Stop: 01/23/20 07:59 Insulin Human NPH (Insulin Human Nph) 20 units SC DAILY@1700 [facility] Stop: 01/22/20 16:59 Lisinopril (Lisinopril 10 Mg Tab) 10 mg PO DAILY [facility] Stop: 01/19/20 08:59 Last Admin: 12/23/19 08:23 Dose: 10 mg Documented by: Ondansetron HCl (Ondansetron Inj 2 Mg/Ml 2 Ml Vial) 4 mg IV Q4H PRN PRN Reason: Nausea And Vomiting Stop: 01/18/20 21:21 Simvastatin (Simvastatin 40 Mg Tab) 40 mg PO DAILY [facility] Stop: 01/19/20 08:59 Last Admin: 12/23/19 08:23 Dose: 40 mg Documented by: Sodium Chloride (Sodium Chloride 0.9% 10ml Flush) 30 ml IV Q24H [facility] Stop: 12/24/19 12:01 Last Admin: 12/23/19 12:49 Dose: 30 ml Documented by: Zinc Sulfate (Zinc Sulfate 220 Mg Capsule) 220 mg PO QAM [facility] Stop: 01/20/20 08:59 Last Admin: 12/23/19 08:23 Dose: 220 mg Documented by: PG Care Time/CCT Total # of Minutes Spent Total Time Spent with Patient: Total time spent is greater than 50% in coordination of care (as documented) at patient's floor/unit and/or counseling patient: Coding Level of Care Code 07647 Subseq Hosp Care Lvl 3 Diagnoses Respiratory failure with hypoxia J96.01 Chronicity: acute Pneumonia due to COVID-19 virus U07.1; J12.89 Acute hyponatremia E87.1 Acute kidney injury N17.9 Diabetes E11.9 Diabetes mellitus type: type 2 Diabetes mellitus intermediate designer insulin use: without penitentiary use Diabetes mellitus complication status: without complication Hypertension I10 Hypertension type: unspecified High cholesterol E78.00 DVT prophylaxis Z29.9 (1) Diabetes Diabetes mellitus type: type 2 Diabetes mellitus penitentiary insulin use: without penitentiary use Diabetes mellitus complication status: without complication Qualified Code(s): E11.9 - Type 2 diabetes mellitus without complications (2) Hypertension Hypertension type: unspecified Qualified Code(s): I10 - Essential (primary) hypertension (3) Respiratory failure with hypoxia Chronicity: acute Qualified Code(s): J96.01 - Acute respiratory failure with hypoxia
[2019-12-23] MEDS ORDERED: MELATONIN 3 MG TAB PO PRN (16:24)
[2019-12-23] MEDS ORDERED: INSULIN HUMAN NPH SC SCH (17:00)
[2019-12-24] MEDS ORDERED: INSULIN HUMAN NPH SC SCH (08:00)
[2019-12-24 08:02] LABS: Eosinophils # (auto) 0.01 K/uL (0-0.5); Eosinophils % (auto) 0.1 %; Hematocrit (blood only) 38.9 % (42-52); Hemoglobin 12.9 g/dL (14.0-18.0); Immature Granulocytes # (auto) 0.03 K/uL (0.00-0.02); Immature Granulocytes % (auto) 0.3 %; Lymphocytes # (auto) 0.92 K/uL (1.2-3.4); Lymphocytes % (auto) 9.9 %; Mean Corpuscular Hemoglobin 29.6 pg (25-34); Mean Corpuscular Hgb Conc 33.2 g/dL (32-36); Mean Corpuscular Volume 89.2 fL (80-100); Mean Platelet Volume 9.8 fL (7.4-10.4); Monocytes # (auto) 0.48 K/uL (0.11-0.59); Monocytes % (auto) 5.1 %; Neutrophils # (auto) 7.89 K/uL (1.4-6.5); Neutrophils % (auto) 84.6 %; Platelet Count 350 K/uL (130-400); RDW Coefficient of Variation 12.9 % (11.5-14.5); RDW Standard Deviation 42.5 fL (36.4-46.3); Red Blood Count 4.36 M/uL (4.7-6.1); White Blood Count 9.33 K/uL (4.8-10.8)
[2019-12-24 08:24] LABS: BUN Creatinine Ratio 25.8 (10-20); Calcium 9.3 mg/dl (8.5-10.1); Creatinine Clr Calc Pharmacy 80.2 ml/min; Est GFR (African American) 98.9; Est GFR (Non-African American) 85.3; Magnesium 1.8 mg/dl (1.8-2.4); Potassium 4.1 mmol/L (3.5-5.1)
[2019-12-24 08:25] LABS: Phosphorus 3.6 mg/dl (2.5-4.9)
--- NOTE | 2019-12-24 08:40 | Hospitalist Progress Note ---
Date of Service December 24, 2019 Assessment & Plan (1) Respiratory failure with hypoxia: 2' to COVID pneumonia (2) Pneumonia due to COVID-19 virus: First symptoms on Saturday (12/12) and tested positive on Friday 12/15 (12-23) Day 11 of illness On 12/19 became tachypneic, tachycardic and hypoxic 12-20 convalescent plasma 12-20 through 12-23 remdesivir daily 12-19 through 12-29 decadron 6mg daily zinc daily (3) Acute hyponatremia: Na was 127 on admission -- improving 133 today Patient did receive IV fluids these were subsequently stopped to try to prevent any pulmonary edema and worsen his respiratory status. 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 He is on a volume restriction now. (4) Acute kidney injury: Cr is 1.5 on admission. Now resolved (5) Diabetes: - A1c 8.0. - Hold home oral meds. - Sliding scale insulin ischemic management will be employed due to the hyperglycemia induced by his intravenous steroids (6) Hypertension: - Continue home lisinopril - Hydralazine PRN (7) High cholesterol: - Continue statin (8) DVT prophylaxis: Heparin SQ Disposition: Eventual discharge to home, hopefully later this week Admission and Anticipated Discharge Date Admission Date: December 19, 2019 Subjective Patient feeling well. Tolerating diet but with decreased intake. Has not had a bowel movement. Denies cough or shortness of breath. Denies chest pain, abdominal pain, or headache. No nausea, vomiting or diarrhea. No loss of taste or smell. Review of Systems Constitutional: no fever, no chills, no fatigue, no weakness, no anorexia, no weight loss and no weight gain Ear, Nose, Mouth, Throat: no nasal congestion, no sore throat and no dysphagia Respiratory: no cough and no dyspnea Cardiovascular: no chest pain, no dyspnea on exertion, no orthopnea and no palpitations Gastrointestinal: no abdominal pain, no nausea, no vomiting, no hematemesis, no dysphagia, no constipation, no diarrhea/loose stools, no blood in stools and no melena Musculoskeletal: no back pain, no joint pain, no myalgia and no muscle weakness Integumentary: no rash, no lesions, no skin ulcer, no erythema, no dry skin and no pruritus Neurologic: no falls, no localized weakness, no generalized weakness, no numbness, no paresthesia, no tremor(s) and no headache(s) Psychiatric: no depression, no suicidal ideation, no homicidal ideation and no anxiety Endocrine: no cold intolerance and no heat intolerance Hematologic / Lymphatic: no easy bleeding and no easy bruising Physical Exam Constitutional: well developed and well nourished; no acute distress Eyes: PERRL, conjunctivae normal, anicteric sclerae ENMT: Mouth: oral mucous membranes not dry Respiratory: normal respiratory effort; no respiratory distress and no labored breathing Auscultation: lungs clear to auscultation bilaterally; no crackles, no rales, no rhonchi and no wheezes Cardiovascular: Rate/Rhythm: regular rate and regular rhythm Heart Sounds: no murmur and no cardiac rub Vessels: normal peripheral pulses and radial pulses present; no JVD Extremities: no edema Gastrointestinal (Abdomen): Inspection/Auscultation: abdomen normal to inspection and normal bowel sounds; abdomen not distended Percussion/Palpation: abdomen soft; abdomen nontender, no guarding, abdomen not rigid and no hepatosplenomegaly Musculoskeletal: Head/Neck/Chest: normocephalic and head atraumatic Spine: no cervical spinal tenderness, no cervical muscular tenderness, no thoracic spinal tenderness and no lumbar spinal tenderness Skin: no rashes, warm and dry Neurologic: CN's II-XI intact bilaterally and moves all extremities Motor/Sensory: no tremor and no sensory deficit Psychiatric: Orientation: alert, oriented to person, oriented to place and oriented to time Apperance: appropriately groomed; not disheveled Affect: euthymic affect; no anxious affect and no tearful affect Results & Data Results & Data ([facility]) Vital Signs (Past 12 Hours) Vital Signs Temp Pulse Pulse Resp BP Pulse Ox 12/24/19 08:12 36.6 C 89 19 161/64 H 91 12/23/19 23:36 36.4 C L 77 21 116/60 93 12/23/19 22:20 65 12/23/19 21:05 36.6 C 82 32 H 139/66 95 Laboratory Results Abnormal lab results 12/23/19 12/23/19 12/24/19 Range/Units 17:01 21:02 07:14 RBC 4.36 L (4.7-6.1) M/uL Hgb 12.9 L (14.0-18.0) g/dL Hct 38.9 L (42-52) % Neut # (Auto) 7.89 H (1.4-6.5) K/uL Lymph # (Auto) 0.92 L (1.2-3.4) K/uL Immature Gran # (Auto) 0.03 H (0.00-0.02) K/uL Sodium (136-145) mmol/L BUN (7-18) mg/dl BUN/Creatinine Ratio (10-20) Glucose (70-99) mg/dl POC Glucose 151 H 184 H (70-99) mg/dl 25-OH Vitamin D Total (30-100) ng/ml 12/24/19 12/24/19 12/24/19 Range/Units 07:14 07:14 08:02 RBC (4.7-6.1) M/uL Hgb (14.0-18.0) g/dL Hct (42-52) % Neut # (Auto) (1.4-6.5) K/uL Lymph # (Auto) (1.2-3.4) K/uL Immature Gran # (Auto) (0.00-0.02) K/uL Sodium 133 L (136-145) mmol/L BUN 19 H (7-18) mg/dl BUN/Creatinine Ratio 25.8 H (10-20) Glucose 65 L (70-99) mg/dl POC Glucose 66 L* (70-99) mg/dl 25-OH Vitamin D Total 13.9 L (30-100) ng/ml Medications Administered Current Inpatient Medications Acetaminophen (Acetaminophen 325 Mg Tab) 650 mg PO Q4H PRN PRN Reason: Moderate Pain Stop: 01/18/20 21:21 Dextrose (Dextrose 50% 50 Ml Syringe) 25 - 50 ml IV UD PRN; Protocol PRN Reason: Hypoglycemia Protocol Stop: 01/18/20 21:21 Enoxaparin Sodium (Enoxaparin Inj 40 Mg/0.4 Ml Syr) 40 mg SQ QAM [facility] Stop: 01/23/20 08:59 Glucagon (Glucagon For Inj 1 Mg Vial) 1 mg SQ UD PRN; Protocol PRN Reason: Hypoglycemia Protocol Stop: 01/18/20 21:21 Glucose (Glucose 10 Tabs/Tube) 4 - 8 tabs PO UD PRN; Protocol PRN Reason: Hypoglycemia Protocol Stop: 01/18/20 21:21 Glucose (Glucose 40% Gel 15 Gm Tube) 15 - 30 gm PO UD PRN; Protocol PRN Reason: Hypoglycemia Protocol Stop: 01/18/20 21:21 Remdesivir 100 mg/ Sodium (Chloride) 250 mls @ 250 mls/hr IV Q24H [facility]; Protocol Stop: 12/24/19 12:59 Last Infusion: 12/23/19 13:48 Dose: Infused Documented by: Dexamethasone 6 mg/ Syringe 1.5 mls @ 1 mls/min IV Q24H [facility] Stop: 01/19/20 11:59 Last Admin: 12/23/19 08:18 Dose: 1 mls/min Documented by: Insulin Aspart (Insulin Aspart 100 Units/Ml 3 Ml Pen) 0 units SC ACHS [facility]; Protocol Stop: 01/22/20 11:29 Last Admin: 12/23/19 21:05 Dose: 3 units Documented by: Insulin Glargine (Insulin Glargine Solostar 100 Units/Ml 3 Ml Pen) 0 units SC BID@0800,2000 [facility]; Protocol Stop: 01/20/20 07:59 Last Admin: 12/23/19 21:03 Dose: 15 units Documented by: Insulin Human NPH (Insulin Human Nph) 20 units SC DAILY@1700 [facility]; Protocol Stop: 01/22/20 16:59 Last Admin: 12/23/19 17:19 Dose: 20 units Documented by: Lisinopril (Lisinopril 10 Mg Tab) 10 mg PO DAILY [facility] Stop: 01/19/20 08:59 Last Admin: 12/23/19 08:23 Dose: 10 mg Documented by: Melatonin (Melatonin 3 Mg Tab) 3 mg PO HS PRN PRN Reason: Sleep Stop: 01/22/20 16:23 Miscellaneous (Carbohydrates For Hypoglycemia ) 15 - 30 gm PO UD PRN PRN Reason: Hypoglycemia Protocol Stop: 01/18/20 21:21 Miscellaneous Information (Pharmacy Glycemic Mgmt Consult) 1 ea N/A UD PRN PRN Reason: Consult Stop: 01/19/20 19:51 Ondansetron HCl (Ondansetron Inj 2 Mg/Ml 2 Ml Vial) 4 mg IV Q4H PRN PRN Reason: Nausea And Vomiting Stop: 01/18/20 21:21 Simvastatin (Simvastatin 40 Mg Tab) 40 mg PO DAILY [facility] Stop: 01/19/20 08:59 Last Admin: 12/23/19 08:23 Dose: 40 mg Documented by: Sodium Chloride (Sodium Chloride 0.9% 10ml Flush) 30 ml IV Q24H [facility] Stop: 12/24/19 12:01 Last Admin: 12/23/19 12:49 Dose: 30 ml Documented by: Zinc Sulfate (Zinc Sulfate 220 Mg Capsule) 220 mg PO QAM [facility] Stop: 01/20/20 08:59 Last Admin: 12/23/19 08:23 Dose: 220 mg Documented by: PG Care Time/CCT Total # of Minutes Spent Total Time Spent with Patient: Total time spent is greater than 50% in coordination of care (as documented) at patient's floor/unit and/or counseling patient: Coding Level of Care Code 26818 Subseq Hosp Care Lvl 3 Diagnoses Respiratory failure with hypoxia J96.01 Chronicity: acute Pneumonia due to COVID-19 virus U07.1; J12.89 Acute hyponatremia E87.1 Acute kidney injury N17.9 Diabetes E11.9 Diabetes mellitus complication status: without complication Diabetes mellitus long-term insulin use: without long-term use Diabetes mellitus type: type 2 Hypertension I10 Hypertension type: unspecified High cholesterol E78.00 DVT prophylaxis Z29.9 (1) Respiratory failure with hypoxia Chronicity: acute Qualified Code(s): J96.01 - Acute respiratory failure with hypoxia (2) Diabetes Diabetes mellitus complication status: without complication Diabetes mellitus long-term insulin use: without exterminator use Diabetes mellitus type: type 2 Qualified Code(s): E11.9 - Type 2 diabetes mellitus without complications (3) Hypertension Hypertension type: unspecified Qualified Code(s): I10 - Essential (primary) hypertension
[2019-12-24] MEDS: ZINC SULFATE 220 MG CAPSULE PO SCH (09:00)
[2019-12-24] MEDS: dexAMETHasone 6 MG in SYRINGE 0 ML IV SCH (09:00)
[2019-12-24] MEDS ORDERED: ENOXAPARIN INJ 40 MG/0.4 ML SYR SQ SCH (09:00)
[2019-12-24] MEDS: lisinopril 10 MG TAB PO SCH (09:01)
[2019-12-24] MEDS: SIMVASTATIN 40 MG TAB PO SCH (09:01)
[2019-12-24] MEDS: INSULIN GLARGINE SOLOSTAR 100 UNITS/ML 3 ML PEN SC SCH (09:05)
[2019-12-24] MEDS: INSULIN ASPART 100 UNITS/ML 3 ML PEN SC SCH ×2 (09:07→13:03)
--- NOTE | 2019-12-24 09:16 | Pharmacy Report ---
Pharmacy Glycemic Short Note 2 - Date of Service December 24, 2019 - Glycemic Short BSG Results (Last 24 hours): OUTPATIENT ANTIDIABETIC REGIMEN: * Metformin 1000 mg BIDM + Glipizide 5 mg BIDM * A1c = 8.0% (12/20/2019) ASSESSMENT: * Omari received 93 units of insulin yesterday * 73 units basal + 20 units bolus * BSGs were 81-26-76-78-151-184 mg/dL - adequate control * Fasting BSG this AM was low at 66 mg/dL. Patient was asymptomatic and did not require treatment. 15 minute recheck was 73 mg/dL. * Believe patient is receiving too much basal insulin at this time. * Will hold any further NPH insulin doses at this time * Continue Lantus as previously ordered * BSGs have been trending up throughout the day which may be secondary to daily dexamethasone dose * Continue to trend but may need to tighten correctional/prandial insulin parameters if this continues PLAN FOR INPATIENT GLYCEMIC CONTROL: * Hold outpatient oral diabetes medications * Basal insulin - decrease * Lantus 8-15 units SQ BID per scale (see eMAR for more details) * Discontinue NPH insulin * Bolus insulin - no change * NovoLog per scale ACHS or Q6hrs while NPO * Goal Range: Low 110 mg/dL - High 140 mg/dL * Correction Factor: 18 mg/dL/unit * Nutritional / Prandial insulin per carb ratio of 1 unit per 6 grams CHO consumed PLAN FOR DISCHARGE: * HbA1c = 8.0% which is borderline controlled given this patient's age and comorbidities. Ideally, would prefer that HbA1c be < 8.0%. Recommend deepak nuing home Metformin upon discharge. Could consider increasing Glipizide to 7.5 mg BIDM upon discharge. However, given patient's age and kidney function, would recommend close monitoring of BSG if this dose is increased and to report any signs/symptoms of hypoglycemia to provider immediately.
[2019-12-24] MEDS: REMDESIVIR 100 MG in SODIUM CHLORIDE 0.9% 230 ML IV SCH (12:42)
[2019-12-24] MEDS: SODIUM CHLORIDE 0.9% 10ML FLUSH IV SCH (14:08)
--- NOTE | 2019-12-24 16:08 | Discharge Summary ---
Date of Service December 24, 2019 Admission HPI Per Admitting Provider 84yo M w/ hx of HTN and DM who presents with Covid-19. Per patient, he became sick on Saturday. He had some fevers, but honestly his chief complaint is loss of appetite. He also had some whole-body aches and pains and generalized weakness. Not much shortness of breath and no major cough. He was brought in with his by their son who was worried they were not doing well at home. Principal Diagnosis acute hypoxic respiratory failure due to COVID 19 Discharge Exam Constitutional well developed and well nourished; no acute distress Eyes PERRL, conjunctivae normal, anicteric sclerae ENMT Mouth: oral mucous membranes not dry Respiratory normal respiratory effort; no respiratory distress and no labored breathing Auscultation: lungs clear to auscultation bilaterally; no crackles, no rales, no rhonchi and no wheezes Cardiovascular Rate/Rhythm: regular rate and regular rhythm Heart Sounds: no murmur and no cardiac rub Vessels: normal peripheral pulses and radial pulses present; no JVD Extremities: no edema Gastrointestinal (Abdomen) Inspection/Auscultation: abdomen normal to inspection and normal bowel sounds; abdomen not distended Percussion/Palpation: abdomen soft; abdomen nontender, no guarding, abdomen not rigid and no hepatosplenomegaly Musculoskeletal Head/Neck/Chest: normocephalic and head atraumatic Spine: no cervical spinal tenderness, no cervical muscular tenderness, no thoracic spinal tenderness and no lumbar spinal tenderness Skin no rashes, warm and dry Neurologic CN's II-XI intact bilaterally and moves all extremities Motor/Sensory: no tremor and no sensory deficit Psychiatric Orientation: alert, oriented to person, oriented to place and oriented to time Apperance: appropriately groomed; not disheveled Affect: euthymic affect; no anxious affect and no tearful affect Discharge Data Allergies Allergy/AdvReac Type Severity Reaction Status Date / Time No Known Allergies Allergy Unverified 12/19/19 15:31 Consultations 12/19/19 17:27 ED Decision to Admit Stat 12/19/19 21:22 Consult Case Management - Discharge Planning Routine Hospital Course (1) Respiratory failure with hypoxia: 2' to COVID pneumonia Required up to 4L NC On 12-23 weaned off oxygen while resting, requires 2L oxygen with ambulation or activity (2) Pneumonia due to COVID-19 virus: 12-12 first symptoms 12-15 tested positive 12-19 became tachypneic, tachycardic and hypoxic 12-20 received convalescent plasma once 12-19 to 12-23 received remdesivir, decadron 6mg daily and zinc daily 12-23 Will discharge home and continue zinc and decadron for five more days (3) Acute hyponatremia: Na was 127 on admission On 12-23 improved to 133 Patient did receive IV fluids these were subsequently stopped to try to prevent any pulmonary edema and worsen his respiratory status. 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 He is on a volume restriction now. (4) Acute kidney injury: Cr is 1.5 on admission. Now resolved (5) Diabetes: - A1c 8.0. - Hold home oral meds metformin and glipizide while inpatient - Sliding scale insulin management will be employed due to the hyperglycemia induced by his intravenous steroids (6) Hypertension: - Continue home lisinopril - Hydralazine PRN (7) High cholesterol: - Continue statin (8) DVT prophylaxis: Heparin SQ Total Time Total Time Spent Total Time Spent (In Minutes): 40 minutes Total Time Includes: Examination of the Patient, Discharge Planning, Medication Reconciliation and Communication With Other Providers Discharge Plan Discharge Items Patient Disposition: Home - Self-Care Reason For Visit: COVID-19 Discharge Diagnosis: 1. respiratory failure with hypoxia (low oxygen) 2. COVID 19 pneumonia 3. hyponatremia (low sodium) 4. DM2 Activity: Resume your previous activity Non-emergency contact: Primary Care Provider Call non-emergency contact if: you have any medication questions Follow-up/Referrals: Maverick Gaytan D.O. [Primary Care Provider] - (see next week for follow up of COVID pneumonia and hospitalization) Diet: Carb Consistent or DM2 Addtl Attending Provider Instructions: 1. Wear 2 liters of oxygen with activity and whenever you are walking. No need to wear oxygen when you are resting. 2. Continue to wear the oxygen unless you are instructed by your primary care doctor that you can stop wearing it. 3. Continue to take dexamethasone 6mg daily for five more days 4. Continue to take zinc 220mg for five more days 5. You are still contagious for four more days. Please continue to quarantine until SaturdayDecember 27 Pending Studies at Discharge: No Stand-Alone Forms: My [facility] [employer], Smoking Cessation Medications and DC Order Prescriptions: New acetaminophen 325 mg Tablet 650 mg PO Q4H PRN (Reason: Pain, Mild) Qty: 30 RF: 0 zinc sulfate [Orazinc] 220 (50) mg Capsule 220 mg PO QAM Qty: 5 RF: 0 dexamethasone 6 mg tablet 6 mg PO DAILY Qty: 5 RF: 0 Continued simvastatin 40 mg tablet 40 mg PO DAILY RF: 0 metformin 1,000 mg tablet 1,000 mg PO BID RF: 0 lisinopril 10 mg tablet 10 mg PO DAILY RF: 0 glipizide 5 mg tablet 5 mg PO BID RF: 0 Discontinued ibuprofen 800 mg tablet 800 mg PO TID PRN (Reason: Pain) RF: 0 Discharge Orders: Discharge Order (Routine); Ordered 12/24/19 Ordered By: Carmen Sifuentes/Other Patient Handouts: High Blood Sugar (Hyperglycemia), Hypoglycemia (Low Blood Sugar), Managing Type 2 Diabetes Admission Data Admit Date/Time: 12/19/19 18:20 Attending Provider: Carmen Heath Admit Provider: Hernán Gerber Primary Care Provider: Maverick Gaytan Other Providers: Hernán Gerber Coding Level of Care Code D/C Day Management >30 mins Diagnoses Respiratory failure with hypoxia J96.01 Chronicity: acute Pneumonia due to COVID-19 virus U07.1; J12.89 Acute hyponatremia E87.1 Acute kidney injury N17.9 Diabetes E11.9 Diabetes mellitus type: type 2 Diabetes mellitus intermediate designer insulin use: without intermediate designer use Diabetes mellitus complication status: without complication Hypertension I10 Hypertension type: unspecified High cholesterol E78.00 DVT prophylaxis Z29.9
[2019-12-24 16:37] VITALS: TEMP 97.3; O2SAT 91
[2019-12-24 16:39] VITALS: BP 138/73; PULSE 92
[2019-12-24] MEDS ORDERED: INSULIN HUMAN NPH SC ONE (17:15)
== END 2019-12-24 18:08 | disposition home or self-care (01) | DRG 177 ==
LOC: ED 14:37 → SUATTDRO 18:20 → 1E 18:20 → 2W 12-21 14:22